=== PATIENT | female | born 1995 | race Caucasian/White ===

== ENCOUNTER 2017-09-19 16:33 | Emergency (ER) | payer SELFPAY ==
[~2017-09-19] VITALS: Ht 167.6 cm; Wt 66.0 kg
[2017-09-19 17:25] LABS: BASOPHILS # (AUTO) 0.03 x10^3/uL (0-0.3); BASOPHILS % (AUTO) 0 % (0-1); EOSINOPHILS % (AUTO) 1 % (1-7); LYMPHOCYTES % (AUTO) 20 % (22-44); MD NO; MEAN CORPUSCULAR HEMOGLOBIN 29.9 pg (27.0-34.8); MEAN CORPUSCULAR HGB CONC 34.2 g/dL (32.4-35.8); MEAN CORPUSCULAR VOLUME 87.2 fL (80-100); MEAN PLATELET VOLUME 9.1 fL (7.4-10.4); MONOCYTES # (AUTO) 0.54 x10^3/uL (0-1.4); MONOCYTES % (AUTO) 8 % (2-9); NEUTROPHILS # (AUTO) 5.05 x10^3/uL (1.8-8.0); NEUTROPHILS % (AUTO) 71 % (42-75); PLATELET COUNT 197 x10^3/uL (130-400); RED CELL DISTRIBUTION WIDTH 14.4 % (9.6-15.2)
[2017-09-19 17:30] LABS: ALANINE AMINOTRANSFERASE 25 U/L (12-78); ALBUMIN 4.1 g/dL (3.4-5.0); ANION GAP 7 mmol/L (5-15); CALCIUM 9.2 mg/dL (8.5-10.1); CHLORIDE 109 mmol/L (98-107)
[2017-09-19 17:32] LABS: INTERNATIONAL NORMALIZED RATIO 0.9 (0.93-1.1); PROTHROMBIN TIME 9.4 Seconds (9.6-11.5)
[2017-09-19 17:34] LABS: ALKALINE PHOSPHATASE 88 U/L (45-117); BILIRUBIN,TOTAL 0.2 mg/dL (0.2-1.0); TOTAL PROTEIN 8.6 g/dL (6.4-8.2)
[2017-09-19 17:56] LABS: MICROSCOPIC AUTO
[2017-09-19] MEDS ORDERED: SODIUM CHLORIDE FLUSH 10ML SYR IVF ONE (18:00)
[2017-09-19 18:01] LABS: CULTURE INDICATED? YES
[2017-09-19] MEDS ORDERED: OMNIPAQUE 350 MG/ML, 100ML BOTTLE ONE (18:50)
[2017-09-19] MEDS ORDERED: CEFTRIAXONE PMX 1GM/50ML 50 ML ONE (19:22)
[2017-09-19] MEDS ORDERED: CEFTRIAXONE 1,000 MG in SODIUM CHLORIDE 0.9% 50 ML IV ONE (19:30)
[2017-09-19 20:23] VITALS: BP 125/78
== END 2017-09-19 20:27 | disposition home or self-care (01) ==
LOC: ED 17:43
DX: N30.01 Acute cystitis with hematuria (principal)
CPT/HCPCS: 36415; 74177; 80053; 81001; 83690; 84703; 85025; 85610; 85730; 87077; 87086; 96365; 99285; J0696; Q9967

== ENCOUNTER 2019-10-16 09:27 | Emergency (ER) | payer MEDICAID ==
[~2019-10-16] VITALS: Ht 167.6 cm; Wt 65.7 kg
[2019-10-16 09:29] VITALS: BP 100/55
[2019-10-16] MEDS ORDERED: IBUPROFEN 600 MG TABLET PO ONE (10:00)
[2019-10-16] MEDS ORDERED: IBUPROFEN 600 MG TABLET ONE (10:07)
--- NOTE | 2019-10-16 11:04 | NUR ---
REPORT FROM ANIBAL FLORES. ASSUMING CARE AT THIS TIME.
== END 2019-10-16 11:23 | disposition home or self-care (01) ==
LOC: ED 09:45
DX: R07.89 Other chest pain (principal); R51 Headache; F17.200 Nicotine dependence, unspecified, uncomplicated
CPT/HCPCS: 71046; 93005; 99283